=== PATIENT | male | born 1940 | race Caucasian/White ===

== ENCOUNTER → 2016-07-11 | Outpatient (CLI) | payer MEDICARE, BC ==
[~2016-07-11] MED LIST: ALPHAGAN-P5 ML OD; ASA CHILDREN'S81 MG PO; BACTROBAN OINT.22 GM TP; BREO ELLIPTA 21 EACH IH; COREG DPS12.5 MG PO; FLONASE 0.05% D16 GM NS; LIDEX 0.05% OIN60 GM TP; LIPITOR40 MG PO; LOTEMAX5 ML OD; MIRALAX PACKET17 GM PO; OXY IR DPS5 MG PO; PROAIR RESPICL90 MCG IH; PROLENSA3 ML OD; PROTONIX40 MG PO; REFRESH TEARS15 ML OU; SENOKOT S1 TAB PO; TRUSOPT 2% DPS10 ML OD; TYLENOL DPS325 MG PO; ULTRAM DPS50 MG PO; VASOTEC DPS10 MG PO; XARELTO10 MG PO
== END | disposition home or self-care (01) ==
LOC: PTH.S 11:02
DX: Z01.818 Encounter for other preprocedural examination (principal); I10 Essential (primary) hypertension

== ENCOUNTER 2016-07-26 10:07 | Inpatient (IN) | payer MEDICARE, BC ==
[~2016-07-26] VITALS: Ht 182.9 cm; Wt 98.0 kg
--- NOTE | 2016-07-26 14:03 | HP ---
ADMIT: 07/26/2016 RM/LOC: [facility] MR#: [id number] [facility] [address] [address] UMESH JOSEPHINE Castillo [address] [place], [place] [address] Pre-OP History and Physical SEX: M AGE: 75 : 1940 DATE OF SERVICE: CHIEF COMPLAINT: Left knee pain. HISTORY OF PRESENT ILLNESS: The patient is a 75-year-old white male with left knee DJD. He has failed nonoperative treatment. Cortisone shots have not been effective. PAST MEDICAL HISTORY: Significant for history of skin cancer and coronary artery disease. MEDICATIONS: 1. Prevacid. 2. Alvesco. 3. Taclonex. 4. Cloderm. 5. Albuterol. 6. Clotrimazole. 7. Betamethasone cream. 8. Carvedilol. 9. Enalapril. 10.Lipitor. 11.Alphagan drops. 12.Trusopt. ALLERGIES: ASPIRIN CAUSES STOMACH PAIN, SO IT IS MORE OF AN INTOLERANCE. SOCIAL HISTORY: The patient occasionally drinks alcohol, is a former smoker. PHYSICAL EXAMINATION: HEENT: Normocephalic and atraumatic. CV: Regular rate and rhythm. LUNGS: Benign. ABDOMEN: Benign. NEUROLOGIC: Awake and oriented x3. MUSCULOSKELETAL: Varus orientation in the knee. He is short a couple degrees ADMIT: 07/26/2016 RM/LOC: W.07 [facility] MR#: [id number] [address] [place] [phone] CALVOJOSEPHINE ADAN [address] [place] [address] Pre-OP History and Physical SEX: M AGE: 75 : 1940 of full extension, flexes 125 degrees. Tender over the medial joint line. No ligamentous laxity. He has patellofemoral crepitus. ASSESSMENT AND PLAN: Left knee degenerative joint disease. At this point in time, we will plan left total knee arthroplasty. He has bone on bone along the medial joint line, some patellofemoral arthrosis by x-ray. He understands the risks and benefits of the surgical intervention which include but not limited to infection, DVT, arthrofibrosis, neurovascular injury, loosening, , etc., and desires to proceed. He will see Dr. Garcia for preoperative medical clearance and follow her postoperatively during hospital for anticoagulation and any medical issues that may arise. Please refer to that H and P for any in-depth medical issues or medication changes. Mau Blas MD/ francine JOB #: [id number] CC: Mau Blas, Attending Physician Yuliya Garcia, Family Physician
[2016-07-30] MEDS ORDERED: VASOTEC DPS10 MG PO (20:42)
[2016-07-30] MEDS ORDERED: COREG DPS12.5 MG PO ×2 (20:42)
[2016-07-30] MEDS ORDERED: PROTONIX40 MG PO (20:42)
[2016-07-30] MEDS ORDERED: LIPITOR40 MG PO (20:43)
[2016-07-30] MEDS ORDERED: ASA CHILDREN'S81 MG PO (20:43)
[2016-07-30] MEDS ORDERED: BREO ELLIPTA 21 EACH IH (20:43)
[2016-07-30] MEDS ORDERED: LIDEX 0.05% OIN60 GM TP (20:44)
[2016-07-30] MEDS ORDERED: FLONASE 0.05% D16 GM NS (20:44)
[2016-07-30] MEDS ORDERED: BACTROBAN OINT.22 GM TP (20:44)
[2016-07-30] MEDS ORDERED: PROAIR RESPICL90 MCG IH (20:44)
[2016-07-30] MEDS ORDERED: PROLENSA3 ML OD (20:45)
[2016-07-30] MEDS ORDERED: ALPHAGAN-P5 ML OD (20:45)
[2016-07-30] MEDS ORDERED: REFRESH TEARS15 ML OU (20:46)
[2016-07-30] MEDS ORDERED: TRUSOPT 2% DPS10 ML OD (20:46)
[2016-07-30] MEDS ORDERED: LOTEMAX5 ML OD (20:46)
[2016-07-30] MEDS ORDERED: XARELTO10 MG PO (20:47)
[2016-07-30] MEDS ORDERED: TYLENOL DPS325 MG PO (20:47)
[2016-07-30] MEDS ORDERED: SENOKOT S1 TAB PO (20:47)
[2016-07-30] MEDS ORDERED: ULTRAM DPS50 MG PO (20:47)
[2016-07-30] MEDS ORDERED: MIRALAX PACKET17 GM PO (20:47)
[2016-07-30] MEDS ORDERED: OXY IR DPS5 MG PO (20:47)
--- NOTE | 2016-08-02 15:27 | OR ---
ADMIT: 07/26/2016 RM/LOC: 521 [facility] MR#: [id number] [address] [address] JOSEPHINE [place] [address] Operative/Delivery Room Report SEX: M AGE: 75 : 1940 SURGERY DATE: 07/26/2016 SURGEON: Mau Blas MD PREOPERATIVE DIAGNOSIS: Left knee degenerative joint disease. POSTOPERATIVE DIAGNOSIS: Left knee degenerative joint disease. PROCEDURE PERFORMED: Left total knee arthroplasty with Zacarias and Zacarias system, size 5 posterior stabilized femoral component, size 5 tibial tray, 8 mm tibial insert, size 41 patellar button. SURGICAL ASSISTANTS: MD Yan Lopez PA-C ANESTHESIA: Spinal. ESTIMATED BLOOD LOSS: Minimal. FLUIDS: Per anesthetic record. COMPLICATIONS: None. DRAIN: One drain. TOURNIQUET TIME: 51 minutes. CONDITION ON DISCHARGE: The patient returned to the recovery room in fair condition. INDICATION: The patient has been having left knee pain refractory to nonoperative treatment due to DJD. He desired total knee arthroplasty. He understands the risks and benefits of the procedure and desired to proceed. OPERATION: The patient was taken to the OR, spinal placed. He was laid in the supine position. All bony prominences were well padded. A well-padded tourniquet applied to left lower extremity. The left lower extremity was prepped and draped in the usual sterile fashion. It was exsanguinated and tourniquet inflated to 350 mmHg. An anterior incision was made starting over the medial aspect of the tibial tubercle, carried proximal to the patella through the skin and subcutaneous tissue with the skin knife. Medial arthrotomy then performed with a #10 blade. The patella everted. Knee flexed. The ACL, PCL, medial, and lateral menisci excised. Step drill was then used to open the intramedullary canal of femur. I placed the IM alignment guide with the distal femoral cutting block down the intramedullary canal of the femur set at 13 mm of resection 5 degrees valgus cut and pinned it to the anterior aspect of the distal femur. I removed the IM alignment guide and cut the distal femur using an oscillating saw. I removed this jig and then sized the femur to 5. I placed a size 5 four-in-one guide on the distal femur and made ADMIT: 07/26/2016 RM/LOC: 521 [facility] MR#: [id number] [address] [address] [place] [address] Operative/Delivery Room Report SEX: M AGE: 75 : 1940 the 4 appropriate cuts using an oscillating saw. I removed this cutting jig and placed a box cutting jig on the distal aspect of the femur. I cut the box out of the distal femur using a reciprocating saw. The proximal tibia was then cut perpendicular to the long axis of the tibial shaft using a proximal tibial cutting guide and oscillating saw. The posterior aspect of the patella was cut flush with the posterior aspect of the quadriceps and patellar tendons using the patella cutting saw. It was sized to 41 and step drilled with the guide. Trial components were then placed. A size 5 tibial tray with 8 mm insert gave excellent range of motion, stability, and patellar tracking. Thus, the femoral component was step drilled, tibial component was step drilled, and cruciate punched. Trial components removed. Knee was thoroughly injected with Exparel throughout. The knee was thoroughly irrigated with bacitracin solution and dried. I then cemented the size 5 tibial tray, the size 5 femoral component, and a size [address] removing all extraneous cement as it dried. I then impacted the 8 mm insert into the tibial tray and ran the knee through a range of motion. It had excellent range of motion, stability, and patellar tracking. Thus, one deep drain was then placed. Medial arthrotomy was then closed using #1 Vicryl. Subcutaneous tissue then closed using 2-0 Vicryl. Skin closed using david. Wounds were washed, dried, dressed with sterile Adaptic, 4x4s, ABD, Webril, and Connor wrap. An ice pad was placed on top of the Connor wrap. Drapes removed, tourniquet let down. The patient transferred back to the recovery room in fair condition. Mau Blas MD/ francine JOB #: [id number] CC: Mau Blas, Attending Physician Yuliya Garcia, Family Physician
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
--- NOTE | 2016-08-09 13:43 | DS ---
ADMIT: 07/26/2016 RM/LOC: 521 [facility] MR#: [id number] [address] [address] JOSEPHINE CALVO [address] [place] [address] [place] [address] General Discharge Summary SEX: M AGE: 75 : 1940 ADMISSION DATE: 07/26/2016 DISCHARGE DATE: 07/30/2016 REASON FOR ADMISSION: Elective left total knee arthroplasty failing conservative management for osteoarthritis. PREOPERATIVE DIAGNOSIS: Left knee degenerative joint disease. POSTOPERATIVE DIAGNOSIS: Left knee degenerative joint disease. PROCEDURE PERFORMED: Left total knee arthroplasty. ASSISTANTS: 1. Dennys Mobley MD. 2. Yan Roque PA-C. ANESTHESIA: Spinal. COMPLICATIONS: None. ESTIMATED BLOOD LOSS: Minimal. SURGEON: Mau Blas MD ACTIVE MEDICAL PROBLEMS: 1. Osteoarthritis. 2. Coronary artery disease. 3. Aspirin intolerance. 4. Chronic obstructive pulmonary disease. 5. History of glaucoma. HOSPITAL COURSE: Josephine was admitted on 07/26/2016 for elective left total knee arthroplasty, it was completed successfully by Dr. Blas. There were no complications. Postoperatively, he did well with pain control with the use of the intraoperative pain cocktail as well as oral analgesics. On the evening of surgery, he had some lower heart rates around 40, so his Coreg and enalapril was held over night, by morning it had improved. Overnight of the surgery, he did have about 700 out of his drain. We had not pulled that after physical therapy, and started his Xarelto as the bleeding had slowed considerably during that time. Also on postoperative day #1, he had some lower blood pressures in the 90s over 40s range, so we gave him IV bolus with normal saline then ran at a 100 mL an hour. This also improved his pressures back up into the 125s over 50s and 60s. Postoperative day #2, he was improved, but still pretty sore. Hemoglobin had dropped at that point to 7.9, and in the morning by postoperative day #3, it was down to 6.8, so he was transfused 2 units of packed red cells. Post infusion, he did have a slight temperature elevation of 100.1, which came down later to 98.4, otherwise had no complications secondary to transfusion. By the end of postoperative day #3, he was continuing to feel much better, and by postoperative day #4, he was ADMIT: 07/26/2016 RM/LOC: 521 [facility] MR#: [id number] 2620 [facility] [address] [place] [phone] JOSEPHINE CALVO [address] [place] [address] General Discharge Summary SEX: M AGE: 75 : 1940 symptomatically improved, doing well with therapy. Hemoglobin trended back up to 10.3, but then down to 8.8, and stable. On day #4, he was stable and ready for discharge with plans for continued therapy. DISCHARGE MEDICATIONS: 1. Enalapril 10 mg b.i.d. 2. Pantoprazole 20 mg daily. 3. Carvedilol 25 mg daily in the morning, and 12.5 mg in the evening. 4. Atorvastatin 40 mg in the evening. 5. Aspirin 81 mg daily. 6. Breo Ellipta 200/25 mcg daily. 7. ProAir HFA 90 mcg q.4 hours p.r.n. 8. Flonase 50 mcg twice daily both nostrils. 9. Fluticasone 0.05 ointment daily to affected areas. 10.Mupirocin 2% topically as needed. 11.Prolensa 0.07% drop in the right eye daily. 12.Alphagan 0.15% drops t.i.d. 13.Dorzolamide 2% drops three times daily in the right eye. 14.Lotemax 0.5% t.i.d. in the right eye daily. 15.Refresh drops in the eyes daily. 16.Tramadol 50 mg 1 to 2 q.6 p.r.n. 17.Tylenol 650 mg q.4 p.r.n. 18.OxyIR 5 mg 1 to 2 q.4 p.r.n. 19.MiraLax p.r.n. 20.Senokot b.i.d. p.r.n. 21.Xarelto 10 mg daily x10 days. DISCHARGE INSTRUCTIONS: Josephine will undergo therapy per total knee arthroplasty protocol. Follow in the Orthopedic office in 2 weeks for wound check, 6 weeks with x-rays. Follow up with primary care as directed. Yan Roque PA-C / Mau Blas MD / francine JOB #: [id number] CC: Mau Blas MD, Attending Physician Yuliya Garcia MD, Family Physician
== END 2016-07-30 12:29 | disposition home or self-care (01) | DRG 470 ==
LOC: WOR 10:07 → 5MS 10:07
PROVIDERS: ADMIT Orthopaedic Surgery
PROC: 0SRD0J9 Replacement of Left Knee Joint with Synthetic Substitute, Cemented, Open Approach (ICD-10-PCS; principal; 2016-07-26)
PROC: 30233N1 Transfusion of Nonautologous Red Blood Cells into Peripheral Vein, Percutaneous Approach (ICD-10-PCS; 2016-07-29)
DX: M17.12 Unilateral primary osteoarthritis, left knee (principal); I27.2 Other secondary pulmonary hypertension; Z99.81 Dependence on supplemental oxygen; D62 Acute posthemorrhagic anemia; R00.1 Bradycardia, unspecified; E87.1 Hypo-osmolality and hyponatremia; R03.1 Nonspecific low blood-pressure reading; I25.10 Atherosclerotic heart disease of native coronary artery without angina pectoris; J44.9 Chronic obstructive pulmonary disease, unspecified; G47.00 Insomnia, unspecified; K21.9 Gastro-esophageal reflux disease without esophagitis; H40.9 Unspecified glaucoma; H91.90 Unspecified hearing loss, unspecified ear; K44.9 Diaphragmatic hernia without obstruction or gangrene; Z86.73 Personal history of transient ischemic attack (TIA), and cerebral infarction without residual deficits; Z87.11 Personal history of peptic ulcer disease; Z79.82 Long term (current) use of aspirin; Z85.828 Personal history of other malignant neoplasm of skin; Z95.1 Presence of aortocoronary bypass graft; Z87.891 Personal history of nicotine dependence

== ENCOUNTER 2016-08-02 22:38 | Emergency (ER) | payer MEDICARE, BC | END 2016-08-03 02:07 | disposition home or self-care (01) | DX: G89.18 Other acute postprocedural pain (principal); M25.562 Pain in left knee; M79.89 Other specified soft tissue disorders; Z98.890 Other specified postprocedural states ==

== ENCOUNTER 2016-08-23 22:22 | Emergency (ER) | payer MEDICARE, BC ==
--- NOTE | 2016-08-24 19:50 | ER ---
ADMIT: 08/23/2016 RM/LOC: ER [facility] MR#: [id number] [address] [address] JOSEPHINE [place] [address] Emergency Room Report SEX: M AGE: 75 : 1940 DATE: 08/23/2016 HISTORY OF PRESENT ILLNESS: The patient is a 75-year-old male with past medical history of hypertension, double bypass, and GERD, status post left knee arthroplasty recently, came to the ER with chief complaint of left knee pain. The patient states he recently had left knee arthroplasty and during the physical therapy session the last few days, he felt increased pain and swelling in the left knee. The patient also complains of mild swelling in the lateral and posterior left knee, which is new. The patient denied any fever. The patient states he was supposed to take knee immobilizer at night, but he stopped using it because of the discomfort for the last week. PHYSICAL EXAMINATION: GENERAL: The patient is sitting on a bed. As long as he was not moving the left lower extremity, he is in no obvious pain or distress. VITAL SIGNS: Stable. HEAD and NECK: Normal. CHEST: Clear bilaterally. HEART: Normal heart sounds. ABDOMEN: Soft. MUSCULOSKELETAL: There is no swelling of the legs unilaterally. There is very mild ballottement, effusion on the left knee, there is a 1 cm nodular swelling of the posterior lateral part of the left knee, which is mildly tender. There is no warmth or erythema over the surgical area or over the knee. The patient can do range of motion of the knee, although extreme range of motion is painful. The patient is also afebrile in the ER. The patient has normal peripheral pulses and normal capillary refillings and motor and sensory. Surgical wound is also clean and dry without any discharges. The rest of the physical exam is noncontributory. IMAGING: X-ray did not show any new changes or abnormalities. Left lower extremity ultrasound did not show any hematoma or thrombosis. ADMIT: 08/23/2016 RM/LOC: ER [facility] MR#: [id number] [address] [address] [place] [address] Emergency Room Report SEX: M AGE: 75 : 1940 LABORATORY DATA: Lab work showed WBC of 9.8, with hemoglobin of 10.5, and platelets of 291,000. CRP is 0.82, and ESR is 24. EMERGENCY ROOM COURSE: Pain was controlled, the patient was reassured. The patient states today before coming to the hospital, he called his orthopedic surgeon about the problem and he was reassured and he was told that there is nothing urgent or emergent to be done about it by the orthopedic surgeon. The patient was reassured in the ER, pain was controlled, and the patient was discharged home with return precautions, advised on using knee immobilizer until seeing the orthopedic surgeon, and follow up with the Orthopedic Surgery [facility] tomorrow morning. The patient acknowledged he understood the plan and agreed with it and was discharged to home. Humphrey Bronson MD/ francine JOB #: [id number] CC: Humphrey Bronson MD, Attending Physician Yuliya Garcia MD, Family Physician
== END 2016-08-24 00:30 | disposition home or self-care (01) ==
LOC: ER 22:22
DX: M25.562 Pain in left knee (principal); M25.462 Effusion, left knee; I10 Essential (primary) hypertension; E78.5 Hyperlipidemia, unspecified; Z88.8 Allergy status to other drugs, medicaments and biological substances; Z79.899 Other long term (current) drug therapy